=== PATIENT | male | born 1950 | race Caucasian/White ===

== ENCOUNTER 2018-09-30 09:32 | Outpatient (REF) | payer OTHER, SELFPAY ==
[2018-09-30 10:15] LABS: ALT 27 U/L (12-78); AST 18 U/L (15-37); Albumin 3.4 g/dL (3.4-5.0); Alkaline Phosphatase 97 U/L (46-116); Anion Gap 7.3 mmol/L (3-11); BUN 20 mg/dL (7-18); Bilirubin, Total 0.6 mg/dL (0.2-1.0); CO2 30.7 mmol/L (21.0-32.0); CREATININE 0.96 mg/dL (0.70-1.30); Calcium 9.3 mg/dL (8.5-10.1); Chloride 102 mmol/L (98-107); Glucose 111 mg/dL (70-100); Magnesium 1.9 mg/dL (1.8-2.4); Potassium 3.7 mmol/L (3.5-5.1); Sodium 140 mmol/L (136-145); Total Protein 7.7 g/dL (6.4-8.2)
[2018-09-30 10:17] LABS: Abs Immature Grans 0.01 k/cumm (0.0-0.09); Absolute Basophil Count 0.04 k/cumm (0.0-0.2); Absolute Eosinophil Count 0.43 k/cumm (0.0-0.7); Absolute Lymphocyte Count 1.28 k/cumm (1.2-3.4); Absolute Monocyte Count 1.17 k/cumm (0.11-0.7); Absolute Neutrophil Count 3.67 k/cumm (1.2-6.7); Basophils % 0.6; Eosinophils % 6.5; HGB 13.8 g/dL (13.5-17.5); Immature Grans % 0.2; Lymphocytes % 19.4; Mean Corp. HGB Concentration 33.7 g/dL (32.0-36.0); Mean Corpuscular Hemoglobin 29.2 pg (27.0-33.0); Mean Corpuscular Volume 86.9 fL (80-95); Mean Platelet Volume 11.9 fL (8.0-11.0); Monocytes % 17.7; Neutrophils % 55.6; Platelet Count 197 x1000/uL (130-400); RBC 4.72 m/cumm (4.50-6.00); RBC Distribution Width 13.7 % (11.8-14.1)
== END 2018-09-30 09:52 ==
LOC: LBN 09:32
PROVIDERS: PCP Family Medicine; Visit Provider Nurse Practitioner Adult Health
DX: C09.9 Malignant neoplasm of tonsil, unspecified (principal)
CPT/HCPCS: 80053; 83735; 85025

== ENCOUNTER 2018-10-15 00:33 | Outpatient (CLI) | payer OTHER, SELFPAY ==
--- NOTE | 2018-10-15 10:27 | DI.RAD_ITS ---
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 Multiple consistencies of barium were administered. A barium tablet is also administered. There is a small Zenker's diverticulum. No aspiration was observed with any consistency. There is no significant pooling of the vallecula or pyriform sinuses. There is some slow oral transit with all consistencies. There is slight improvement with chin-tuck technique. IMPRESSION: Small Zenker's diverticulum. No evidence of aspiration. Slow oral transit.
== END 2018-10-15 00:53 ==
PROVIDERS: PCP Family Medicine; Visit Provider Preventive Medicine Undersea and Hyperbaric Medicine
DX: C09.9 Malignant neoplasm of tonsil, unspecified (principal); K22.5 Diverticulum of esophagus, acquired; R13.12 Dysphagia, oropharyngeal phase
CPT/HCPCS: 92611; 74220; J3490

== ENCOUNTER 2018-10-22 08:00 | Outpatient (RCR) | payer OTHER, SELFPAY | END 2018-11-04 23:59 | disposition home or self-care (01) | LOC: SP 08:00 | PROVIDERS: PCP Family Medicine | DX: R13.12 Dysphagia, oropharyngeal phase (principal) | CPT/HCPCS: 92507 ==

== ENCOUNTER 2018-11-04 10:00 | Outpatient (RCR) | payer OTHER, SELFPAY ==
[2018-10-07] MEDS: Normal Saline Flush 10 ML SYR IVP (09:01)
[2018-10-07 09:23] LABS: Abs Immature Grans 0.04 k/cumm (0.0-0.09); Absolute Basophil Count 0.03 k/cumm (0.0-0.2); Absolute Eosinophil Count 0.42 k/cumm (0.0-0.7); Absolute Lymphocyte Count 1.47 k/cumm (1.2-3.4); Absolute Monocyte Count 1.18 k/cumm (0.11-0.7); Absolute Neutrophil Count 5.94 k/cumm (1.2-6.7); Basophils % 0.3; Eosinophils % 4.6; HCT 44.7 % (40.0-50.0); Immature Grans % 0.4; Lymphocytes % 16.2; Mean Corp. HGB Concentration 33.6 g/dL (32.0-36.0); Mean Corpuscular Hemoglobin 28.9 pg (27.0-33.0); Mean Corpuscular Volume 86.1 fL (80-95); Neutrophils % 65.5; Platelet Count 293 x1000/uL (130-400); RBC 5.19 m/cumm (4.50-6.00); RBC Distribution Width 13.3 % (11.8-14.1); White Blood Cell Count 9.08 k/cumm (4.4-10.8)
[2018-10-07 09:39] LABS: ALT 41 U/L (12-78); AST 23 U/L (15-37); Albumin 3.7 g/dL (3.4-5.0); Alkaline Phosphatase 102 U/L (46-116); Anion Gap 7.4 mmol/L (3-11); BUN 21 mg/dL (7-18); Bilirubin, Total 0.4 mg/dL (0.2-1.0); CO2 31.6 mmol/L (21.0-32.0); Calcium 9.8 mg/dL (8.5-10.1); Chloride 98 mmol/L (98-107); Glucose 105 mg/dL (70-100); Magnesium 1.5 mg/dL (1.8-2.4); Potassium 4.3 mmol/L (3.5-5.1); Sodium 137 mmol/L (136-145); Total Protein 7.8 g/dL (6.4-8.2)
[2018-10-14] MEDS: Normal Saline Flush 10 ML SYR IVP (08:19)
[2018-10-14 08:35] LABS: Abs Immature Grans 0.01 k/cumm (0.0-0.09); Absolute Basophil Count 0.02 k/cumm (0.0-0.2); Absolute Eosinophil Count 0.11 k/cumm (0.0-0.7); Absolute Lymphocyte Count 0.84 k/cumm (1.2-3.4); Absolute Monocyte Count 0.82 k/cumm (0.11-0.7); Absolute Neutrophil Count 4.64 k/cumm (1.2-6.7); Basophils % 0.3; Eosinophils % 1.7; HCT 42.8 % (40.0-50.0); HGB 14.3 g/dL (13.5-17.5); Immature Grans % 0.2; Mean Corp. HGB Concentration 33.4 g/dL (32.0-36.0); Mean Corpuscular Hemoglobin 29.2 pg (27.0-33.0); Mean Corpuscular Volume 87.3 fL (80-95); Mean Platelet Volume 11.3 fL (8.0-11.0); Monocytes % 12.7; Neutrophils % 72.1; Platelet Count 206 x1000/uL (130-400); RBC Distribution Width 13.4 % (11.8-14.1); White Blood Cell Count 6.44 k/cumm (4.4-10.8)
[2018-10-14 08:48] LABS: ALT 46 U/L (12-78); AST 21 U/L (15-37); Albumin 3.6 g/dL (3.4-5.0); Alkaline Phosphatase 109 U/L (46-116); Anion Gap 10.5 mmol/L (3-11); BUN 24 mg/dL (7-18); Bilirubin, Total 0.2 mg/dL (0.2-1.0); CO2 29.5 mmol/L (21.0-32.0); CREATININE 1.09 mg/dL (0.70-1.30); Calcium 9.2 mg/dL (8.5-10.1); Chloride 99 mmol/L (98-107); Glucose 182 mg/dL (70-100); Magnesium 1.3 mg/dL (1.8-2.4); Potassium 4.4 mmol/L (3.5-5.1); Sodium 139 mmol/L (136-145); Total Protein 7.3 g/dL (6.4-8.2)
[2018-10-18] MEDS: Normal Saline Flush 10 ML SYR IVP (14:10)
[2018-10-18] MEDS: Heparin 500 UNITS/5 ML SYRINGE IV (14:11)
[2018-10-18 14:21] LABS: Abs Immature Grans 0.01 k/cumm (0.0-0.09); Absolute Eosinophil Count 0.05 k/cumm (0.0-0.7); Absolute Lymphocyte Count 0.82 k/cumm (1.2-3.4); Absolute Monocyte Count 1.08 k/cumm (0.11-0.7); Absolute Neutrophil Count 4.52 k/cumm (1.2-6.7); Eosinophils % 0.8; HCT 38.6 % (40.0-50.0); Immature Grans % 0.2; Lymphocytes % 12.7; Mean Corp. HGB Concentration 33.7 g/dL (32.0-36.0); Mean Corpuscular Hemoglobin 29.5 pg (27.0-33.0); Mean Corpuscular Volume 87.5 fL (80-95); Mean Platelet Volume 10.5 fL (8.0-11.0); Monocytes % 16.7; Neutrophils % 69.6; Platelet Count 206 x1000/uL (130-400); RBC 4.41 m/cumm (4.50-6.00); RBC Distribution Width 13.4 % (11.8-14.1); White Blood Cell Count 6.48 k/cumm (4.4-10.8)
[2018-10-18 14:31] LABS: ALT 42 U/L (12-78); AST 14 U/L (15-37); Albumin 3.4 g/dL (3.4-5.0); Alkaline Phosphatase 85 U/L (46-116); Anion Gap 9.1 mmol/L (3-11); BUN 34 mg/dL (7-18); Bilirubin, Total 0.4 mg/dL (0.2-1.0); CO2 29.9 mmol/L (21.0-32.0); CREATININE 1.38 mg/dL (0.70-1.30); Calcium 8.5 mg/dL (8.5-10.1); Chloride 99 mmol/L (98-107); Estimated GFR 50.94 (mL/min/1.73m2); Glucose 131 mg/dL (70-100); Magnesium 1.4 mg/dL (1.8-2.4); Potassium 4.2 mmol/L (3.5-5.1); Sodium 138 mmol/L (136-145); Total Protein 6.8 g/dL (6.4-8.2)
[2018-10-28] MEDS: Normal Saline Flush 10 ML SYR IVP (08:51)
[2018-10-28 09:14] LABS: Absolute Basophil Count 0.01 k/cumm (0.0-0.2); Absolute Lymphocyte Count 0.55 k/cumm (1.2-3.4); Absolute Monocyte Count 0.52 k/cumm (0.11-0.7); Absolute Neutrophil Count 2.22 k/cumm (1.2-6.7); Basophils % 0.3; Eosinophils % 2.9; HCT 37.4 % (40.0-50.0); HGB 12.8 g/dL (13.5-17.5); Lymphocytes % 16.2; Mean Corp. HGB Concentration 34.2 g/dL (32.0-36.0); Mean Corpuscular Hemoglobin 29.7 pg (27.0-33.0); Mean Corpuscular Volume 86.8 fL (80-95); Mean Platelet Volume 10.8 fL (8.0-11.0); Monocytes % 15.3; Neutrophils % 65.3; RBC 4.31 m/cumm (4.50-6.00); RBC Distribution Width 13.2 % (11.8-14.1)
[2018-10-28 09:23] LABS: ALT 38 U/L (12-78); AST 21 U/L (15-37); Albumin 3.3 g/dL (3.4-5.0); Alkaline Phosphatase 94 U/L (46-116); Anion Gap 5.5 mmol/L (3-11); BUN 24 mg/dL (7-18); Bilirubin, Total 0.3 mg/dL (0.2-1.0); CO2 31.5 mmol/L (21.0-32.0); CREATININE 1.23 mg/dL (0.70-1.30); Calcium 8.7 mg/dL (8.5-10.1); Chloride 100 mmol/L (98-107); Estimated GFR 58.17 (mL/min/1.73m2); Glucose 135 mg/dL (70-100); Magnesium 1.3 mg/dL (1.8-2.4); Potassium 4.5 mmol/L (3.5-5.1); Sodium 137 mmol/L (136-145)
[2018-10-28 09:31] LABS: Diff Comment PLT Morph Reviewed; Platelet Count 89 x1000/uL (130-400); RBC Morphology Normal
[2018-11-01] MEDS: Heparin 500 UNITS/5 ML SYRINGE IV (13:35)
[2018-11-01] MEDS: Normal Saline Flush 10 ML SYR IVP (13:35)
[2018-11-01 14:16] LABS: Absolute Eosinophil Count 0.06 k/cumm (0.0-0.7); Absolute Lymphocyte Count 0.48 k/cumm (1.2-3.4); Absolute Monocyte Count 0.41 k/cumm (0.11-0.7); Absolute Neutrophil Count 1.56 k/cumm (1.2-6.7); Eosinophils % 2.4; HCT 32.2 % (40.0-50.0); Lymphocytes % 19.1; Mean Corp. HGB Concentration 34.2 g/dL (32.0-36.0); Mean Corpuscular Hemoglobin 29.8 pg (27.0-33.0); Mean Corpuscular Volume 87.3 fL (80-95); Mean Platelet Volume 10.1 fL (8.0-11.0); Monocytes % 16.3; Neutrophils % 62.2; RBC 3.69 m/cumm (4.50-6.00); RBC Distribution Width 13.4 % (11.8-14.1); White Blood Cell Count 2.51 k/cumm (4.4-10.8)
[2018-11-01 14:31] LABS: Diff Comment PLT Morph Reviewed; Platelet Count 96 x1000/uL (130-400); RBC Morphology Normal
[2018-11-01 14:32] LABS: ALT 28 U/L (12-78); AST 16 U/L (15-37); Albumin 3.2 g/dL (3.4-5.0); Alkaline Phosphatase 98 U/L (46-116); Anion Gap 5.9 mmol/L (3-11); BUN 26 mg/dL (7-18); Bilirubin, Total 0.3 mg/dL (0.2-1.0); CO2 31.1 mmol/L (21.0-32.0); CREATININE 1.38 mg/dL (0.70-1.30); Calcium 8.6 mg/dL (8.5-10.1); Chloride 98 mmol/L (98-107); Estimated GFR 50.94 (mL/min/1.73m2); Glucose 98 mg/dL (70-100); Magnesium 1.9 mg/dL (1.8-2.4); Potassium 4.2 mmol/L (3.5-5.1); Sodium 135 mmol/L (136-145); Total Protein 6.9 g/dL (6.4-8.2)
[2018-11-04] MEDS: Normal Saline Flush 10 ML SYR IVP (09:35)
[2018-11-04 09:56] LABS: Absolute Eosinophil Count 0.04 k/cumm (0.0-0.7); Absolute Lymphocyte Count 0.38 k/cumm (1.2-3.4); Absolute Monocyte Count 0.39 k/cumm (0.11-0.7); Absolute Neutrophil Count 0.84 k/cumm (1.2-6.7); Eosinophils % 2.4; HCT 33.2 % (40.0-50.0); HGB 11.3 g/dL (13.5-17.5); Mean Corpuscular Hemoglobin 29.9 pg (27.0-33.0); Mean Corpuscular Volume 87.8 fL (80-95); Mean Platelet Volume 9.2 fL (8.0-11.0); Monocytes % 23.6; Platelet Count 122 x1000/uL (130-400); RBC 3.78 m/cumm (4.50-6.00); RBC Distribution Width 13.7 % (11.8-14.1)
[2018-11-04 10:08] LABS: ALT 27 U/L (12-78); AST 16 U/L (15-37); Albumin 3.2 g/dL (3.4-5.0); Alkaline Phosphatase 103 U/L (46-116); Anion Gap 5.5 mmol/L (3-11); BUN 25 mg/dL (7-18); Bilirubin, Total 0.3 mg/dL (0.2-1.0); CO2 32.5 mmol/L (21.0-32.0); CREATININE 1.15 mg/dL (0.70-1.30); Calcium 9.1 mg/dL (8.5-10.1); Chloride 97 mmol/L (98-107); Glucose 108 mg/dL (70-100); Potassium 4.9 mmol/L (3.5-5.1); Sodium 135 mmol/L (136-145); Total Protein 7.1 g/dL (6.4-8.2)
[2018-11-04 10:16] LABS: Diff Comment Diff Reviewed; White Blood Cell Count 1.65 k/cumm (4.4-10.8)
[2018-11-04 10:17] LABS: RBC Morphology Normal
== END 2018-11-04 23:59 | disposition home or self-care (01) ==
LOC: INF 10:00
PROVIDERS: PCP Family Medicine; Visit Provider Nurse Practitioner Adult Health
DX: C09.9 Malignant neoplasm of tonsil, unspecified (principal); Z45.2 Encounter for adjustment and management of vascular access device
CPT/HCPCS: 36591; 80053; 83735; 85025

== ENCOUNTER 2018-11-12 02:10 | Outpatient (RCR) | payer OTHER, SELFPAY | END 2018-12-02 15:52 | LOC: SP 02:10 | PROVIDERS: PCP Family Medicine | DX: R13.12 Dysphagia, oropharyngeal phase (principal) | CPT/HCPCS: 92507 ==

== ENCOUNTER 2018-11-26 02:37 | Outpatient (RCR) | payer OTHER, SELFPAY | END 2018-12-05 23:59 | disposition home or self-care (01) | LOC: SP 02:37 | PROVIDERS: PCP Family Medicine | DX: R13.12 Dysphagia, oropharyngeal phase (principal) | CPT/HCPCS: 92507 ==

== ENCOUNTER 2018-12-05 01:31 | Outpatient (RCR) | payer OTHER, SELFPAY ==
[2018-11-08] MEDS: Normal Saline Flush 10 ML SYR IVP (08:55)
[2018-11-08 09:37] LABS: Absolute Basophil Count 0.01 k/cumm (0.0-0.2); Absolute Eosinophil Count 0.05 k/cumm (0.0-0.7); Absolute Lymphocyte Count 0.35 k/cumm (1.2-3.4); Absolute Monocyte Count 0.34 k/cumm (0.11-0.7); Absolute Neutrophil Count 0.95 k/cumm (1.2-6.7); Basophils % 0.6; Eosinophils % 2.9; HCT 31.9 % (40.0-50.0); HGB 10.8 g/dL (13.5-17.5); Lymphocytes % 20.6; Mean Corp. HGB Concentration 33.9 g/dL (32.0-36.0); Mean Corpuscular Volume 88.6 fL (80-95); Mean Platelet Volume 9.7 fL (8.0-11.0); Neutrophils % 55.9; Platelet Count 184 x1000/uL (130-400); RBC Distribution Width 14.1 % (11.8-14.1)
[2018-11-08 09:43] LABS: ALT 21 U/L (12-78); AST 14 U/L (15-37); Albumin 2.9 g/dL (3.4-5.0); Alkaline Phosphatase 99 U/L (46-116); Anion Gap 7.3 mmol/L (3-11); BUN 20 mg/dL (7-18); Bilirubin, Total 0.3 mg/dL (0.2-1.0); CO2 30.7 mmol/L (21.0-32.0); CREATININE 1.28 mg/dL (0.70-1.30); Calcium 8.5 mg/dL (8.5-10.1); Chloride 99 mmol/L (98-107); Estimated GFR 55.56 (mL/min/1.73m2); Glucose 154 mg/dL (70-100); Magnesium 1.9 mg/dL (1.8-2.4); Potassium 4.6 mmol/L (3.5-5.1); Sodium 137 mmol/L (136-145); Total Protein 6.8 g/dL (6.4-8.2)
[2018-11-08 09:55] LABS: Diff Comment Agrees w/ Instrument; RBC Morphology Normal
[2018-11-11] MEDS: Normal Saline Flush 10 ML SYR IVP (07:34)
[2018-11-11 07:50] LABS: Abs Immature Grans 0.02 k/cumm (0.0-0.09); Absolute Basophil Count 0.01 k/cumm (0.0-0.2); Absolute Eosinophil Count 0.05 k/cumm (0.0-0.7); Absolute Monocyte Count 0.57 k/cumm (0.11-0.7); Absolute Neutrophil Count 1.63 k/cumm (1.2-6.7); Basophils % 0.4; Eosinophils % 1.9; HCT 34.2 % (40.0-50.0); HGB 11.6 g/dL (13.5-17.5); Immature Grans % 0.7; Lymphocytes % 14.9; Mean Corp. HGB Concentration 33.9 g/dL (32.0-36.0); Mean Corpuscular Volume 88.4 fL (80-95); Mean Platelet Volume 9.7 fL (8.0-11.0); Monocytes % 21.3; Neutrophils % 60.8; Platelet Count 259 x1000/uL (130-400); RBC 3.87 m/cumm (4.50-6.00); RBC Distribution Width 14.4 % (11.8-14.1); White Blood Cell Count 2.68 k/cumm (4.4-10.8)
[2018-11-11 08:01] LABS: ALT 20 U/L (12-78); AST 16 U/L (15-37); Albumin 3.2 g/dL (3.4-5.0); Alkaline Phosphatase 110 U/L (46-116); Anion Gap 5.9 mmol/L (3-11); BUN 19 mg/dL (7-18); Bilirubin, Total 0.3 mg/dL (0.2-1.0); CO2 33.1 mmol/L (21.0-32.0); Calcium 9.2 mg/dL (8.5-10.1); Chloride 97 mmol/L (98-107); Estimated GFR 54.57 (mL/min/1.73m2); Glucose 120 mg/dL (70-100); Potassium 4.5 mmol/L (3.5-5.1); Sodium 136 mmol/L (136-145); Total Protein 7.6 g/dL (6.4-8.2)
[2018-11-15] MEDS: Normal Saline Flush 10 ML SYR IVP (09:20)
[2018-11-15] MEDS: Heparin 500 UNITS/5 ML SYRINGE IV (09:20)
[2018-11-15 09:26] LABS: Abs Immature Grans 0.06 k/cumm (0.0-0.09); Absolute Basophil Count 0.01 k/cumm (0.0-0.2); Absolute Eosinophil Count 0.05 k/cumm (0.0-0.7); Absolute Lymphocyte Count 0.46 k/cumm (1.2-3.4); Absolute Monocyte Count 0.85 k/cumm (0.11-0.7); Basophils % 0.2; Eosinophils % 1.2; HCT 31.7 % (40.0-50.0); HGB 10.6 g/dL (13.5-17.5); Immature Grans % 1.4; Lymphocytes % 10.6; Mean Corp. HGB Concentration 33.4 g/dL (32.0-36.0); Mean Corpuscular Hemoglobin 29.9 pg (27.0-33.0); Mean Corpuscular Volume 89.5 fL (80-95); Mean Platelet Volume 9.1 fL (8.0-11.0); Monocytes % 19.6; Platelet Count 266 x1000/uL (130-400); RBC 3.54 m/cumm (4.50-6.00); RBC Distribution Width 14.9 % (11.8-14.1); White Blood Cell Count 4.33 k/cumm (4.4-10.8)
[2018-11-15 09:39] LABS: ALT 20 U/L (12-78); AST 15 U/L (15-37); Albumin 2.9 g/dL (3.4-5.0); Alkaline Phosphatase 93 U/L (46-116); Anion Gap 7.8 mmol/L (3-11); BUN 16 mg/dL (7-18); Bilirubin, Total 0.2 mg/dL (0.2-1.0); CO2 32.2 mmol/L (21.0-32.0); CREATININE 1.25 mg/dL (0.70-1.30); Chloride 98 mmol/L (98-107); Glucose 117 mg/dL (70-100); Potassium 4.4 mmol/L (3.5-5.1); Sodium 138 mmol/L (136-145); Total Protein 6.9 g/dL (6.4-8.2)
[2018-11-18] MEDS: Normal Saline Flush 10 ML SYR IVP (10:47)
[2018-11-18] MEDS: Heparin 500 UNITS/5 ML SYRINGE IV (10:47)
[2018-11-18 10:51] LABS: Abs Immature Grans 0.14 k/cumm (0.0-0.09); HCT 33.3 % (40.0-50.0); HGB 11.2 g/dL (13.5-17.5); Mean Corp. HGB Concentration 33.6 g/dL (32.0-36.0); Mean Corpuscular Volume 89.3 fL (80-95); Mean Platelet Volume 9.3 fL (8.0-11.0); Platelet Count 318 x1000/uL (130-400); RBC 3.73 m/cumm (4.50-6.00); RBC Distribution Width 15.1 % (11.8-14.1); White Blood Cell Count 6.13 k/cumm (4.4-10.8)
[2018-11-18 11:11] LABS: ALT 19 U/L (12-78); AST 16 U/L (15-37); Alkaline Phosphatase 93 U/L (46-116); Anion Gap 4.9 mmol/L (3-11); BUN 18 mg/dL (7-18); Bilirubin, Total 0.3 mg/dL (0.2-1.0); CO2 33.1 mmol/L (21.0-32.0); CREATININE 1.33 mg/dL (0.70-1.30); Calcium 8.9 mg/dL (8.5-10.1); Chloride 97 mmol/L (98-107); Estimated GFR 53.16 (mL/min/1.73m2); Glucose 126 mg/dL (70-100); Potassium 4.3 mmol/L (3.5-5.1); Sodium 135 mmol/L (136-145); Total Protein 7.2 g/dL (6.4-8.2)
[2018-11-18 11:19] LABS: Absolute Lymphocyte Count 0.25 k/cumm (1.2-3.4); Absolute Monocyte Count 0.43 k/cumm (0.11-0.7); Absolute Neutrophil Count 5.33 k/cumm (1.2-6.7)
[2018-11-18 11:20] LABS: Anisocytosis 1+; Diff Comment Manual Differential
[2018-11-21] MEDS: Normal Saline Flush 10 ML SYR IVP (07:06)
[2018-11-21 07:18] LABS: Abs Immature Grans 0.16 k/cumm (0.0-0.09); Absolute Basophil Count 0.05 k/cumm (0.0-0.2); Absolute Eosinophil Count 0.09 k/cumm (0.0-0.7); Absolute Lymphocyte Count 0.35 k/cumm (1.2-3.4); Absolute Monocyte Count 1.58 k/cumm (0.11-0.7); Absolute Neutrophil Count 7.24 k/cumm (1.2-6.7); Basophils % 0.5; HCT 33.9 % (40.0-50.0); HGB 11.2 g/dL (13.5-17.5); Immature Grans % 1.7; Lymphocytes % 3.7; Mean Corpuscular Hemoglobin 29.9 pg (27.0-33.0); Mean Corpuscular Volume 90.4 fL (80-95); Mean Platelet Volume 9.5 fL (8.0-11.0); Monocytes % 16.7; Neutrophils % 76.4; Platelet Count 340 x1000/uL (130-400); RBC 3.75 m/cumm (4.50-6.00); RBC Distribution Width 15.5 % (11.8-14.1); White Blood Cell Count 9.47 k/cumm (4.4-10.8)
[2018-11-21 07:41] LABS: ALT 26 U/L (12-78); AST 20 U/L (15-37); Alkaline Phosphatase 89 U/L (46-116); Anion Gap 6.7 mmol/L (3-11); BUN 22 mg/dL (7-18); Bilirubin, Total 0.2 mg/dL (0.2-1.0); CO2 33.3 mmol/L (21.0-32.0); CREATININE 1.36 mg/dL (0.70-1.30); Chloride 97 mmol/L (98-107); Estimated GFR 51.81 (mL/min/1.73m2); Glucose 109 mg/dL (70-100); Magnesium 1.9 mg/dL (1.8-2.4); Potassium 4.8 mmol/L (3.5-5.1); Sodium 137 mmol/L (136-145); Total Protein 7.1 g/dL (6.4-8.2)
[2018-11-29] MEDS: Normal Saline Flush 10 ML SYR IVP (13:48)
[2018-11-29 13:58] LABS: Abs Immature Grans 0.03 k/cumm (0.0-0.09); Absolute Basophil Count 0.03 k/cumm (0.0-0.2); Absolute Eosinophil Count 0.11 k/cumm (0.0-0.7); Absolute Lymphocyte Count 0.62 k/cumm (1.2-3.4); Absolute Monocyte Count 1.14 k/cumm (0.11-0.7); Absolute Neutrophil Count 5.89 k/cumm (1.2-6.7); Basophils % 0.4; Eosinophils % 1.4; HGB 11.7 g/dL (13.5-17.5); Immature Grans % 0.4; Lymphocytes % 7.9; Mean Corp. HGB Concentration 33.4 g/dL (32.0-36.0); Mean Corpuscular Hemoglobin 30.1 pg (27.0-33.0); Mean Platelet Volume 10.6 fL (8.0-11.0); Monocytes % 14.6; Neutrophils % 75.3; Platelet Count 208 x1000/uL (130-400); RBC 3.89 m/cumm (4.50-6.00); RBC Distribution Width 15.9 % (11.8-14.1); White Blood Cell Count 7.82 k/cumm (4.4-10.8)
[2018-11-29 14:08] LABS: ALT 28 U/L (12-78); AST 21 U/L (15-37); Albumin 3.4 g/dL (3.4-5.0); Alkaline Phosphatase 91 U/L (46-116); Anion Gap 9.4 mmol/L (3-11); BUN 23 mg/dL (7-18); Bilirubin, Total 0.6 mg/dL (0.2-1.0); CO2 30.6 mmol/L (21.0-32.0); CREATININE 1.51 mg/dL (0.70-1.30); Calcium 9.3 mg/dL (8.5-10.1); Chloride 97 mmol/L (98-107); Estimated GFR 45.91 (mL/min/1.73m2); Glucose 101 mg/dL (70-100); Magnesium 1.8 mg/dL (1.8-2.4); Potassium 4.1 mmol/L (3.5-5.1); Sodium 137 mmol/L (136-145); Total Protein 7.5 g/dL (6.4-8.2)
[2018-12-05] MEDS: Normal Saline Flush 10 ML SYR IVP (08:09)
[2018-12-05 08:16] LABS: Abs Immature Grans 0.01 k/cumm (0.0-0.09); Absolute Basophil Count 0.03 k/cumm (0.0-0.2); Absolute Lymphocyte Count 0.59 k/cumm (1.2-3.4); Absolute Monocyte Count 1.04 k/cumm (0.11-0.7); Absolute Neutrophil Count 4.46 k/cumm (1.2-6.7); Basophils % 0.5; Eosinophils % 3.2; HGB 10.9 g/dL (13.5-17.5); Immature Grans % 0.2; Lymphocytes % 9.3; Mean Corpuscular Hemoglobin 29.9 pg (27.0-33.0); Mean Corpuscular Volume 90.7 fL (80-95); Mean Platelet Volume 10.1 fL (8.0-11.0); Monocytes % 16.4; Neutrophils % 70.4; Platelet Count 144 x1000/uL (130-400); RBC 3.64 m/cumm (4.50-6.00); RBC Distribution Width 16.2 % (11.8-14.1); White Blood Cell Count 6.33 k/cumm (4.4-10.8)
[2018-12-05 08:29] LABS: ALT 27 U/L (12-78); AST 23 U/L (15-37); Albumin 3.2 g/dL (3.4-5.0); Alkaline Phosphatase 83 U/L (46-116); Anion Gap 8.4 mmol/L (3-11); BUN 17 mg/dL (7-18); Bilirubin, Total 0.4 mg/dL (0.2-1.0); CO2 28.6 mmol/L (21.0-32.0); Calcium 8.9 mg/dL (8.5-10.1); Chloride 102 mmol/L (98-107); Estimated GFR 54.57 (mL/min/1.73m2); Glucose 107 mg/dL (70-100); Potassium 4.7 mmol/L (3.5-5.1); Sodium 139 mmol/L (136-145); Total Protein 6.7 g/dL (6.4-8.2)
== END 2018-12-05 23:59 | disposition home or self-care (01) ==
LOC: INF 01:31
PROVIDERS: PCP Family Medicine; Visit Provider Nurse Practitioner Adult Health
DX: C09.9 Malignant neoplasm of tonsil, unspecified (principal); Z45.2 Encounter for adjustment and management of vascular access device
CPT/HCPCS: 36415; 36591; 80053; 83735; 85025

== ENCOUNTER 2018-12-31 00:34 | Outpatient (CLI) | payer OTHER, MEDICARE, SELFPAY ==
[2018-12-31] MEDS: Barium Sulfate 60% W/V 355 ML BTL PO (09:29)
[2018-12-31] MEDS: Barium Sulfate 700 MG TAB PO (09:29)
--- NOTE | 2018-12-31 09:45 | DI.RAD_ITS ---
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 The swallowing mechanism was unremarkable during the examination. No evidence of aspiration is seen. Incidental note is made of a small Zenker's diverticulum. Please refer to the report by the Department of Speech Pathology for complete details.
== END 2018-12-31 00:54 ==
PROVIDERS: PCP Family Medicine; Visit Provider Nurse Practitioner Adult Health
DX: R22.1 Localized swelling, mass and lump, neck (principal); C09.9 Malignant neoplasm of tonsil, unspecified; K22.5 Diverticulum of esophagus, acquired; R13.12 Dysphagia, oropharyngeal phase
CPT/HCPCS: 74220

== ENCOUNTER 2018-12-31 01:18 | Outpatient (RCR) | payer OTHER, SELFPAY | END 2019-01-02 23:59 | disposition home or self-care (01) | LOC: SP 01:18 | PROVIDERS: PCP Family Medicine | DX: R13.12 Dysphagia, oropharyngeal phase (principal) | CPT/HCPCS: 92507 ==

== ENCOUNTER 2020-08-18 13:51 | Outpatient (RCR) | payer OTHER, MEDICARE, SELFPAY ==
[2020-08-18 14:33] LABS: TSH 5.09 uIU/mL (0.36-3.74)
== END 2020-09-04 23:59 | disposition home or self-care (01) ==
LOC: INF 13:51
PROVIDERS: PCP Family Medicine; Visit Provider Preventive Medicine Undersea and Hyperbaric Medicine
DX: C10.9 Malignant neoplasm of oropharynx, unspecified (principal)
CPT/HCPCS: 36415; 84443

== ENCOUNTER 2021-11-23 01:47 | Outpatient (RCR) | payer OTHER, SELFPAY ==
[2021-11-23 13:13] LABS: TSH 1.22 uIU/mL (0.36-3.74)
== END 2021-12-05 23:59 | disposition home or self-care (01) ==
LOC: INF 01:47
PROVIDERS: PCP Family Medicine; Visit Provider Preventive Medicine Undersea and Hyperbaric Medicine
DX: C10.9 Malignant neoplasm of oropharynx, unspecified (principal)
CPT/HCPCS: 36415; 84443

== ENCOUNTER 2024-01-07 05:17 | Outpatient (CLI) | payer OTHER, SELFPAY ==
[2024-01-07 12:02] LABS: TSH 1.38 uIU/Ml (0.36-3.74)
== END 2024-01-07 05:18 | disposition home or self-care (01) ==
LOC: LBO 05:18
PROVIDERS: PCP Family Medicine; Visit Provider Nurse Practitioner
DX: E03.9 Hypothyroidism, unspecified (principal); C09.9 Malignant neoplasm of tonsil, unspecified
CPT/HCPCS: 36415; 84443